=== PATIENT | female | born 1940 | race Caucasian/White ===

== ENCOUNTER 2018-08-27 06:16 | Day surgery (SDC) | payer MEDICARE ==
[2018-08-25 15:13] VITALS: BMI 21.7
[~2018-08-27 06:16] MED LIST: MOXIFLOXACIN HCL 0.5% DROPS 3 ML BTL OP ONE; TETRACAINE 0.5% OPHTH (PF) DROPS 4 ML BTL OP ONE; TIMOLOL 0.5% OPHTH DROPS 5 ML BTL OP ONE
[2018-08-27] MEDS ORDERED: LIDOCAINE 1% 20 ML VIAL (10MG/ML) FOR IV START INTRADERMA PRN (06:17)
[2018-08-27] MEDS ORDERED: LACTATED RINGERS 1,000 ML IV SCH (06:17)
[2018-08-27] MEDS: PHENYLEPHRINE 2.5% OPHTH DRP 2ML OP NR ×3 (06:44→06:56)
[2018-08-27] MEDS: CYCLOPENTOLATE 1% OPHTH SOLN 2 ML BTL OP ONE ×3 (06:47→06:59)
[2018-08-27 06:56] VITALS: RESP 16; TEMP 98.8
[2018-08-27] MEDS ORDERED: LIDOCAINE 1% (PF) 10MG/ML VIAL SQ ONE (07:43)
[2018-08-27] MEDS ORDERED: HYALURONATE SODIUM INTRAOCULAR 1 EACH SYRINGE (12MG/ML) INTRAOCULA ONE (07:43)
[2018-08-27] MEDS ORDERED: BALANCED SALT IRRIG SOLN COMB2 15 ML IRRIG.SOLN IRRIGATION ONE (07:43)
[2018-08-27] MEDS ORDERED: EPINEPHrine (PF) 0.3 ML in BALANCED SALT IRRIG SOLN COMB2 500 ML IRRIGATION ONE (07:44)
--- NOTE | 2018-08-27 07:55 | P.OP ---
Date of Procedure: 08/27/18 Preoperative Diagnosis: NS & CS Postoperative Diagnosis: same Procedure(s) Performed: PIOL, OS Implants: PCB00 22.50 Anesthesia: MAC Surgeon: Binu Bearden Estimated Blood Loss (ml): 0 Pathology: none sent Condition: stable Disposition: same day Indications for Procedure: blurry vision Operative Findings: No complications
[2018-08-27] MEDS ORDERED: fentaNYL (PF) 50 MCG/ML 2 ML AMP ONE (07:56)
[2018-08-27] MEDS ORDERED: MIDAZOLAM 2 MG/2 ML VIAL ONE (07:56)
[2018-08-27 08:12] VITALS: BP 128/76; PULSE 66
--- NOTE | 2018-08-27 12:37 | OP ---
OPERATIVE REPORT DATE OF SERVICE: August 27, 2018. SURGEON: Dr. Binu Bearden PREOPERATIVE DIAGNOSIS: Nuclear sclerosis, cortical sclerosis. POSTOPERATIVE DIAGNOSIS: Nuclear sclerosis, cortical sclerosis. OPERATION: Phacoemulsification of cataract and intraocular lens implant of the left eye. ESTIMATED BLOOD LOSS: Zero. SPECIMEN TAKEN: None. NARRATIVE: After obtaining the appropriate consent, the patient was brought to the operating room where the patient was placed under cardiac monitoring and prepped and draped in the usual sterile manner. At the 5 o'clock position a 15 degree super sharp blade was used to create a paracentesis followed by instillation of 1% Xylocaine MPF 50:50 mix with BSS into the anterior chamber. This was followed by viscoelastic Amvisc to stabilize the anterior chamber. At the 3 o'clock position a self-sealing corneal flap incision was created using 2.8 mm rhett keratome. A cystotome was used to initiate a continuous tear capsulorrhexis which was completed with the Utrata forceps. A Binkhorst cannula was used to hydrodissect the lens nucleus followed by hydrodelineation. Phacoemulsification of the lens was performed utilizing phaco chop in 17.4 seconds at 11% power. The remaining cortical material was removed using the irrigation aspiration mode followed by additional 1% Xylocaine MPF into the anterior chamber followed by viscoelastic to stabilize the capsular bag. An AUBREY PCB00 22.5 diopters posterior chamber lens was placed into the capsular bag without difficulty. The remaining viscoelastic material was removed from the anterior chamber with the irrigation/aspiration. Balanced salt solution was used to normalize the intraocular pressure. The incision was checked for watertight integrity. The patient then received two drops of 0.5% timolol followed by two drops Vigamox, was lightly patched and shielded in the usual manner. There were no complications from the procedure. The patient tolerated the procedure well and was returned to recovery in good condition. MMODL / IJN: [id number] /
== END 2018-08-27 08:36 | disposition home or self-care (01) ==
LOC: OR 06:16
PROVIDERS: ATTEND Ophthalmology
DX: H25.12 Age-related nuclear cataract, left eye (principal); H25.012 Cortical age-related cataract, left eye; H52.223 Regular astigmatism, bilateral; I10 Essential (primary) hypertension; E78.5 Hyperlipidemia, unspecified; F32.9 Major depressive disorder, single episode, unspecified; Z86.73 Personal history of transient ischemic attack (TIA), and cerebral infarction without residual deficits; Z87.891 Personal history of nicotine dependence; Z79.82 Long term (current) use of aspirin; Z79.899 Other long term (current) drug therapy
CPT/HCPCS: 66984; C1780; J2250; J0171; J3010; J2001

== ENCOUNTER 2024-04-16 14:48 | Inpatient (IN) | payer MEDICARE ==
[2024-04-16] MEDS: SODIUM CHLORIDE 0.9% 1,000 ML IV STA (15:42)
[2024-04-16] MEDS: MORPHINE SULFATE 4 MG/ML SYRINGE IVP STA (15:43)
[2024-04-16] MEDS: ONDANSETRON 4 MG/2 ML VIAL IVP STA (15:45)
[2024-04-16 15:50] LABS: Basophils % (A) 0 %; Eosinophils % (A) 0 %; HCT 52.6 % (34.0-46.0); HGB 16.9 gm/dL (11.4-16.0); Lymphocytes # (A) 1.2 k/uL (1.0-4.8); Lymphocytes % (A) 11 %; MCHC 32.2 g/dL (31.0-37.0); MCV 93.4 fL (80.0-100.0); Mean Platelet Volume 9.2; Monocytes # (A) 1.3 k/uL (0-1.0); Monocytes % (A) 11 %; Neutrophils # (A) 8.7 k/uL (1.3-7.7); Neutrophils % (A) 74 %; Platelet Count 304 k/uL (150-450); RBC 5.64 m/uL (3.80-5.40); RDW 12.7 % (11.5-15.5); WBC 11.7 k/uL (3.8-10.6)
--- NOTE | 2024-04-16 15:54 | ED ---
Abdominal Pain HPI - General Chief Complaint: Abdominal Pain Stated Complaint: abd pain Time Seen by Provider: 04/16/24 15:04 Source: patient, RN notes reviewed, old records reviewed Mode of arrival: ambulatory Limitations: no limitations - History of Present Illness Initial Comments: This is an 83-year-old female to the ER for evaluation abdominal pain suprapubic abdominal pain without nausea no vomiting no travel no sick contacts no fevers. Patient has history of but no other history of abdominal surgery. Symptoms for 4 days now with worsening Abdo. Unable to eat or drink MD Complaint: abdominal pain -: days(s) (4) Location: suprapubic Radiation: suprapubic Migration to: suprapubic Severity: severe Severity scale (1-10): 8 Quality: stabbing Consistency: constant Improves With: nothing Worsens With: nothing Associated Symptoms: nausea Treatments Prior to Arrival: other (0) - Related Data Home Medications Medication Instructions Recorded Confirmed Aspirin [Adult Low Dose Aspirin EC] 81 mg PO DAILY 08/05/18 04/16/24 Atorvastatin [Lipitor] 10 mg PO HS 08/05/18 04/16/24 Citalopram Hydrobromide 20 mg PO DAILY 08/05/18 04/16/24 [Citalopram HBr] Benazepril HCl [Lotensin] 20 mg PO DAILY 04/16/24 04/16/24 Cyclobenzaprine [Flexeril] 5 - 10 mg PO HS 04/16/24 04/16/24 Nitrofurantoin Monohyd/M-Cryst 100 mg PO Q12HR 04/16/24 04/16/24 [Macrobid] Vit C/E/Zn/Coppr/Lutein/Zeaxan 1 cap PO BID 04/16/24 04/16/24 [Preservision Areds 2 Softgel] Vitamin C(Unknown Dose) 1 tab PO DAILY 04/16/24 04/16/24 Vitamin D3(Unknown Dose) 1 tab PO DAILY 04/16/24 04/16/24 traZODone HCL [Desyrel] 50 mg PO HS 04/16/24 04/16/24 Allergies Allergy/AdvReac Type Severity Reaction Status Date / Time No Known Allergies Allergy Verified 04/16/24 18:19 Review of Systems ROS Statement: Those systems with pertinent positive or pertinent negative responses have been documented in the HPI. ROS Other: All systems not noted in ROS Statement are negative. Past Medical History Past Medical History: CVA/TIA, Hyperlipidemia, Hypertension, Osteoarthritis (OA) Additional Past Medical History / Comment(s): lt cataracts, hx of "couple" TIA's History of Any Multi-Drug Resistant Organisms: None Reported Past Surgical History: Section, Orthopedic Surgery Additional Past Surgical History / Comment(s): fx left hip sx Past Anesthesia/Blood Transfusion Reactions: No Reported Reaction Past Psychological History: Anxiety, Depression Smoking Status: Never smoker Past Alcohol Use History: Daily Past Drug Use History: None Reported - Past Family History Mother Family Medical History: Cancer Father Family Medical History: Cancer General Exam Limitations: no limitations General appearance: alert, in no apparent distress Head exam: Present: atraumatic, normocephalic, normal inspection Eye exam: Present: normal appearance, PERRL, EOMI. Absent: scleral icterus, conjunctival injection, periorbital swelling ENT exam: Present: normal exam, mucous membranes moist Neck exam: Present: normal inspection. Absent: tenderness, meningismus, lymphadenopathy Respiratory exam: Present: normal lung sounds bilaterally. Absent: respiratory distress, wheezes, rales, rhonchi, stridor Cardiovascular Exam: Present: regular rate, normal rhythm, normal heart sounds. Absent: systolic murmur, diastolic murmur, rubs, gallop, clicks GI/Abdominal exam: Present: soft, normal bowel sounds. Absent: distended, tenderness, guarding, rebound, rigid Extremities exam: Present: normal inspection, full ROM, normal capillary refill. Absent: tenderness, pedal edema, joint swelling, calf tenderness Back exam: Present: normal inspection Neurological exam: Present: alert, oriented X3, CN II-XII intact Psychiatric exam: Present: normal affect, normal mood Skin exam: Present: warm, dry, intact, normal color. Absent: rash Course Vital Signs 04/16/24 04/16/24 04/16/24 14:50 17:37 17:39 Temperature 97.3 F L 98.9 F Pulse Rate 70 102 H Respiratory 16 20 Rate Blood Pressure 111/67 143/77 O2 Sat by Pulse 95 88 L 100 Oximetry 04/16/24 04/16/24 18:00 21:39 Temperature 98.8 F Pulse Rate 94 Respiratory 17 Rate Blood Pressure 130/75 O2 Sat by Pulse 100 95 Oximetry - Reevaluation(s) Reevaluation #1: 04/16/24 16:42 Records reviewed Reevaluation #2: 04/16/24 16:42 Patient symptoms unchanged Reevaluation #3: 04/16/24 16:42 Patient informed of results and questions answered Reevaluation #4: Was pt. sent in by a medical professional or institution (, PA, BUTTON MACHINE OPERATOR, urgent care, hospital, or fci...) When possible be specific @ -no Did you speak to anyone other than the patient for history (EMS, parent, family, police, friend...)? What history was obtained from this source @ -no Did you review nursing and triage notes (agree or disagree)? Why? @ -agree Are old charts reviewed (outside hosp., previous admission, EMS record, old EKG, old radiological studies, urgent care reports/EKG's, fci records)? Report findings @ -yes Differential Diagnosis (chest pain, altered mental status, abdominal pain women, abdominal pain men, vaginal bleeding, weakness, fever, dyspnea, syncope, headache, dizziness, GI bleed, back pain, seizure, CVA, palpatations, mental health, musculoskeletal)? @ -prior EKG interpreted by me (3pts min.). @ -yes X-rays interpreted by me (1pt min.). @ -no CT interpreted by me (1pt min.). @ -Yes positive for small bowel obstruction U/S interpreted by me (1pt. min.). @ -no What testing was considered but not performed or refused? (CT, X-rays, U/S, labs)? Why? @ -none What meds were considered but not given or refused? Why? @ -none Did you discuss the management of the patient with other professionals (professionals i.e. , PA, BUTTON MACHINE OPERATOR, lab, RT, psych nurse, social media director, cash accountant, teacher, program officer, renal case manager)? Give summary @ -no Was smoking cessation discussed for >3mins.? @ -no Was critical care preformed (if so, how long)? @ -no Were there social determinants of health that impacted care today? How? (Homelessness, low income, unemployed, alcoholism, drug addiction, tra nsportation, low edu. Level, literacy, decrease access to med. care, penitentiary, rehab)? @ -none Was there de-escalation of care discussed even if they declined (Discuss DNR or withdrawal of care, Hospice)? DNR status @ -no What co-morbidities impacted this encounter? (DM, HTN, Smoking, COPD, CAD, Cance r, CVA, ARF, Chemo, Hep., AIDS, mental health diagnosis, sleep apnea, morbid obesity)? @ -none Was patient admitted / discharged? Hospital course, mention meds given and route, prescriptions, significant lab abnormalities, going to OR and other pertinent info. @ - 83 female with positive mobile structure admit for surgical evaluation management n.p.o. and pain control Admitted Undiagnosed new problem with uncertain prognosis? @ -no Drug Therapy requiring intensive monitoring for toxicity (Heparin, Nitro, Insulin, Cardizem)? @ -no Were any procedures done? @ -no Diagnosis/symptom? @ -Small bowel obstruction Acute, or Chronic, or Acute on Chronic? @ -Acute Uncomplicated (without systemic symptoms) or Complicated (systemic symptoms)? @ -Complicated Side effects of treatment? @ -no Exacerbation, Progression, or Severe Exacerbation? @ -exacerbation Poses a threat to life or bodily function? How? (Chest pain, USA, DC, pneumonia, PE, COPD, DKA, ARF, appy, cholecystitis, CVA, Diverticulitis, Homicidal, Suicidal, threat to staff... and all critical care pts) @ -yes extremes of age Reevaluation #5: Differential Abdominal Pain Women: Appendicitis, Cholecystitis, diverticulosis, ischemic bowel, pancreatitis, hepatitis, UTI, gastroenteritis, AAA, incarcerated hernia, bowel obstruction, constipation, inflammatory bowel, hepatitis, peptic ulcer disease, splenic infarction, perforated viscus, vulvitis, ovarian torsion, PID, kidney stone, placenta abruption, this is not meant to be an all-inclusive list - Consultations Consultation #1: Spoke with admitting physicians who agreed to admit this patient Medical Decision Making - Medical Decision Making 83 female with positive mobile structure admit for surgical evaluation management n.p.o. and pain control - Lab Data Result diagrams: 04/19/24 02:40 04/19/24 02:40 Lab Results 04/16/24 04/16/24 04/16/24 Range/Units 15:28 15:28 17:50 WBC 11.7 H (3.8-10.6) k/uL RBC 5.64 H (3.80-5.40) m/uL Hgb 16.9 H (11.4-16.0) gm/dL Hct 52.6 H (34.0-46.0) % MCV 93.4 (80.0-100.0) fL MCH 30.0 (25.0-35.0) pg MCHC 32.2 (31.0-37.0) g/dL RDW 12.7 (11.5-15.5) % Plt Count 304 (150-450) k/uL MPV 9.2 Neutrophils % 74 % Lymphocytes % 11 % Monocytes % 11 % Eosinophils % 0 % Basophils % 0 % Neutrophils # 8.7 H (1.3-7.7) k/uL Lymphocytes # 1.2 (1.0-4.8) k/uL Monocytes # 1.3 H (0-1.0) k/uL Eosinophils # 0.0 (0-0.7) k/uL Basophils # 0.0 (0-0.2) k/uL Sodium 131 L (137-145) mmol/L Potassium 4.4 (3.5-5.1) mmol/L Chloride 93 L (98-107) mmol/L Carbon Dioxide 29 (22-30) mmol/L Anion Gap 9 mmol/L BUN 24 H (7-17) mg/dL Creatinine 0.90 (0.52-1.04) mg/dL Est GFR (CKD-EPI)AfAm 69 (>60 ml/min/1.73 sqM) Est GFR (CKD-EPI)NonAf 60 (>60 ml/min/1.73 sqM) Glucose 132 H (74-99) mg/dL Calcium 11.0 H (8.4-10.2) mg/dL Phosphorus 6.2 H (2.5-4.5) mg/dL Magnesium 1.9 (1.6-2.3) mg/dL Total Bilirubin 1.4 H (0.2-1.3) mg/dL AST 28 (14-36) U/L ALT 16 (4-34) U/L Alkaline Phosphatase 62 (38-126) U/L Total Protein 6.9 (6.3-8.2) g/dL Albumin 4.3 (3.5-5.0) g/dL Amylase 54 (30-110) U/L Lipase 182 (23-300) U/L Urine Color Light Yellow Urine Appearance Clear (Clear) Urine pH 5.0 (5.0-8.0) Ur Specific [place] 1.026 (1.001-1.035) Urine Protein Negative (Negative) Urine Glucose (UA) Negative (Negative) Urine Ketones Negative (Negative) Urine Blood Negative (Negative) Urine Nitrite Negative (Negative) Urine Bilirubin Negative (Negative) Urine Urobilinogen <2.0 (<2.0) mg/dL Ur Leukocyte Esterase Negative (Negative) - Radiology Data Radiology results: report reviewed (CT abdomen pelvis positive for small bowel obstruction), image reviewed Disposition Clinical Impression: Abdominal pain, Small bowel obstruction Disposition: ADMITTED IP TO THIS [facility] Condition: Fair Is patient prescribed a controlled substance at d/c from ED?: No Time of Disposition: 18:30
[2024-04-16 16:06] LABS: ALT 16 U/L (4-34); African American GFR (CKD) 69 (>60 ml/min/1.73 sqM); Albumin 4.3 g/dL (3.5-5.0); Amylase 54 U/L (30-110); Anion Gap 9 mmol/L; Blood Urea Nitrogen 24 mg/dL (7-17); Carbon Dioxide 29 mmol/L (22-30); Chloride 93 mmol/L (98-107); Glucose 132 mg/dL (74-99); Lipase 182 U/L (23-300); Non-African American GFR(CKD) 60 (>60 ml/min/1.73 sqM); Sodium 131 mmol/L (137-145); Total Bilirubin 1.4 mg/dL (0.2-1.3); Total Protein 6.9 g/dL (6.3-8.2)
[2024-04-16 16:20] LABS: AST 28 U/L (14-36); Alkaline Phosphatase 62 U/L (38-126); Magnesium 1.9 mg/dL (1.6-2.3); Phosphorus 6.2 mg/dL (2.5-4.5); Potassium 4.4 mmol/L (3.5-5.1)
--- NOTE | 2024-04-16 17:26 | CT ---
EXAMINATION TYPE: CT abdomen pelvis w con DATE OF EXAM: 04/16/2024 COMPARISON: None HISTORY: lower abdominal pain CT DLP: 624.9 mGycm CONTRAST: CT scan of the abdomen and pelvis is performed without Oral Contrast and with IV Contrast, patient in jected with 80ml mL of Isovue 370. FINDINGS: LUNG BASES-: No visible nodule. No infiltrate. LIVER/GB: No calcified gallstones. Hepatic cyst posterior segment right hepatic lobe measures 1 cm. Biliary tree is of normal caliber. PANCREAS: No inflammation. No distinct mass. SPLEEN: No splenic enlargement. No lesion seen. ADRENALS: No nodule. No thickening. KIDNEYS/BLADDER: No hydronephrosis. No nephrolithiasis. No distinct renal mass. Urinary bladder g rossly unremarkable. BOWEL: Normal appendix. Small bowel obstruction with dilatation of small bowel and stomach secondary to an incarcerated hernia low anterior abdominal wall seen best on axial images 74 through 77 and cor onal image #27. Incarcerated segment of small bowel just to the left of midline. GENITAL ORGANS: Calcified uterine leiomyomas. LYMPH NODES: No greater than 1cm abdominal or pelvic lymph nodes are appreciated. AORTA: No significant abnormality. OSSEOUS STRUCTURES: No significant abnormality is seen. OTHER: No significant additional abnormality is seen. IMPRESSION: 1. Small bowel obstruction with dilatation of small bowel and stomach secondary to an incarcerated he rnia low anterior abdominal wall seen best on axial images 74 through 77 and coronal image #27. Incar cerated segment of small bowel just to the left of midline. Strangulation not excluded. [facility], , 04/16/2024 5:24 PM
[2024-04-16 18:01] LABS: Appearance,Urine Clear (Clear); Bilirubin,Urine Negative (Negative); Blood,Urine Negative (Negative); Color,Urine Light Yellow; Glucose,Urine (UA) Negative (Negative); Ketones,Urine Negative (Negative); Leukocyte Esterase,Urine Negative (Negative); Nitrite,Urine Negative (Negative); Protein,Urine Negative (Negative); Specific Gravity,Urine 1.026 (1.001-1.035); Urobilinogen,Urine <2.0 mg/dL (<2.0)
[2024-04-16] MEDS ORDERED: NALOXONE 0.4 MG/ML 1 ML VIAL IV PRN (18:26)
[2024-04-16] MEDS: SODIUM CHLORIDE 0.9% 1,000 ML IV SCH (19:55)
[2024-04-16] MEDS: AMPICILLIN-SULBACTAM 3 GM in SODIUM CHLORIDE 0.9% 100 ML IVPB STA (19:55)
--- NOTE | 2024-04-16 20:27 | XR ---
EXAMINATION TYPE: XR chest 1V confirm line [facility] DATE OF EXAM: 04/16/2024 HISTORY: Shortness of breath. COMPARISON: None. TECHNIQUE: Single view of the chest is submitted. FINDINGS: Demonstrated are scattered senescent parenchymal change. There is right paratracheal mass with deviation of the trachea from right to left. NG tube is seen co ursing into the stomach. Atelectatic change left lung base. The heart is stable. Hilar and mediastinal structures are within normal limits. Degenerative changes are seen of the dorsal spine. IMPRESSION: 1. There is right paratracheal mass with deviation of the trachea from right to left. NG tube is see n coursing into the stomach. Atelectatic change left lung base. [facility], , 04/16/2024 8:25 PM
[2024-04-17] MEDS: MORPHINE SULFATE 4 MG/ML SYRINGE IV PRN (01:24)
--- NOTE | 2024-04-17 02:12 | XR ---
EXAM: XR Chest, 1 View CLINICAL HISTORY: ITS.REASON XR Reason: NG tube line placement TECHNIQUE: Frontal view of the chest. COMPARISON: 04/16/2024. FINDINGS: Lungs: Unremarkable. No consolidation. Pleural space: Small bilateral pleural effusions. No pneumothorax. Heart: Unremarkable. No cardiomegaly. Mediastinum: Unremarkable. Normal mediastinal contour. Bones/joints: Unremarkable. No acute fracture. Tubes, lines and devices: Esophageal catheter with its tip in the stomach. IMPRESSION: Small bilateral pleural effusions. Appropriate positioning of support devices
[2024-04-17] MEDS: AMPICILLIN-SULBACTAM 3 GM in SODIUM CHLORIDE 0.9% 100 ML IVPB SCH (04:01)
[2024-04-17 08:43] LABS: ALT 13 U/L (8-44); AST 16 U/L (13-35); Albumin 3.6 g/dL (3.8-4.9); Alkaline Phosphatase 68 U/L (41-126); Blood Urea Nitrogen 18.9 mg/dL (9.0-27.0); Carbon Dioxide 27.2 mmol/L (21.6-31.8); Chloride 99 mmol/L (96-109); Globulin 1.8 g/dL (1.6-3.3); Glucose 122 mg/dL (70-110); Magnesium 1.9 mg/dL (1.5-2.4); Phosphorus 3.6 mg/dL (2.4-5.1); Potassium 3.9 mmol/L (3.5-5.5); Sodium 138 mmol/L (135-145); Total Bilirubin 0.7 mg/dL (0.3-1.2); Total Protein 5.4 g/dL (6.2-8.2)
[2024-04-17 09:20] LABS: HCT 46.4 % (37.2-46.3); HGB 14.9 g/dL (12.0-15.0); MCH 29.8 pg (27.0-32.0); MCHC 32.1 g/dL (32.0-37.0); MCV 92.8 FL (80.0-97.0); Mean Platelet Volume 12.2 FL (9.5-12.2); NRBC Per 100 WBC 0 X 10*3/uL (0.00-0.01); Platelet Count 248 X 10*3/uL (140-440); RDW 13.6 % (11.5-14.5); WBC 9.02 X 10*3/uL (4.50-10.00)
[2024-04-17 10:02] LABS: Basophils # (A) 0.04 X 10*3/uL (0.00-0.10); Basophils % (A) 0.4 %; Eosinophils # (A) 0.03 X 10*3/uL (0.04-0.35); Eosinophils % (A) 0.3 %; Lymphocytes # (A) 0.71 X 10*3/uL (0.90-5.00); Lymphocytes % (A) 7.9 %; Monocytes # (A) 2.02 X 10*3/uL (0.20-1.00); Monocytes % (A) 22.4 %; Neutrophils % (A) 68.8 %; RBC Morphology Normal (Normal)
[2024-04-17] MEDS ORDERED: LORazepam 2 MG/ML INJ IV PRN ×4 (10:57)
--- NOTE | 2024-04-17 10:59 | P.HPIM ---
History of Present Illness H&P Date: 04/17/24 Chief Complaint: Abdominal pain This is a pleasant 83-year-old female with past medical history significant for 1 abdominal surgery-hysterectomy, CVA/TIA, hypertension, hyperlipidemia, osteoarthritis, cataracts, anxiety, depression, prior nicotine dependence-smoked 1 pack/day from teen years x 35 years, quit 1983, 3 beers per night and multiple other medical issues presented to the ER with complaints of abdominal pain. Reports abdominal pain started on Saturday, unable to attribute it to anything. Denies nausea, vomiting denies bowel movement or flatus since earlier this week. Denies recent illness. Denies fever or chills. Denies prior bowel o bstructions. patient reports normal colonoscopy [address] Mervat Nunez. Abdominal pain continued to progress and patient presented to the ER. CT of abdomen and pelvis reported small bowel obstruction with dilatation of the small bowel and stomach secondary to incarcerated hernia low anterior abdominal wall .incarcerated segment of small bowel just to the left of the midline, strangulation not excluded . Reported difficulty swallowing, chest x-ray reporting right peritracheal mass with deviation of the trachea for right to left, NG tube coursing into the stomach, atelectatic changes left lung base afebrile. Repeat chest x-ray reporting small bilateral pleural effusions. Afebrile, WBC 11.7 on admission, now within normal limits. Hemoglobin decreased from 16.9-14.9, platelets decreased to 248, electrolytes and renal function within normal limits. Glucose 122. T. bili initially 1.4 currently 0.7. UA negative. Follow-up bowel sounds are extremely hypoactive. NG tube placed last night, accidentally dislodged and replaced during the night with 600 mL of bilious drainage. Review of Systems ROS Statement: Those systems with pertinent positive or pertinent negative responses have been documented in the HPI. ROS Other: All systems not noted in ROS Statement are negative. Past Medical History Past Medical History: CVA/TIA, Hyperlipidemia, Hypertension, Osteoarthritis (OA) Additional Past Medical History / Comment(s): lt cataracts, hx of "couple" TIA's History of Any Multi-Drug Resistant Organisms: None Reported Past Surgical History: Section, Orthopedic Surgery Additional Past Surgical History / Comment(s): fx left hip sx Past Anesthesia/Blood Transfusion Reactions: No Reported Reaction Past Psychological History: Anxiety, Depression Smoking Status: Never smoker Past Alcohol Use History: Daily Additional Past Alcohol Use History / Comment(s): quit smoking approx 35 yrs ago (1983) smoked 1ppd from teens, Drinks 3 beers a night ( 2% Budweiser) Past Drug Use History: None Reported - Past Family History Mother Family Medical History: Cancer Father Family Medical History: Cancer Medications and Allergies Home Medications Medication Instructions Recorded Confirmed Type Aspirin [Adult Low Dose Aspirin EC] 81 mg PO DAILY 08/05/18 04/16/24 History Atorvastatin [Lipitor] 10 mg PO HS 08/05/18 04/16/24 History Citalopram Hydrobromide 20 mg PO DAILY 08/05/18 04/16/24 History [Citalopram HBr] Benazepril HCl [Lotensin] 20 mg PO DAILY 04/16/24 04/16/24 History Cyclobenzaprine [Flexeril] 5 - 10 mg PO HS 04/16/24 04/16/24 History Nitrofurantoin Monohyd/M-Cryst 100 mg PO Q12HR 04/16/24 04/16/24 History [Macrobid] Vit C/E/Zn/Coppr/Lutein/Zeaxan 1 cap PO BID 04/16/24 04/16/24 History [Preservision Areds 2 Softgel] Vitamin C(Unknown Dose) 1 tab PO DAILY 04/16/24 04/16/24 History Vitamin D3(Unknown Dose) 1 tab PO DAILY 04/16/24 04/16/24 History traZODone HCL [Desyrel] 50 mg PO HS 04/16/24 04/16/24 History Allergies Allergy/AdvReac Type Severity Reaction Status Date / Time No Known Allergies Allergy Verified 04/16/24 18:19 Physical Exam Vitals: Vital Signs Temp Pulse Pulse Resp BP BP Pulse Ox 04/17/24 07:26 98.8 F 99 17 119/72 92 L 04/17/24 02:43 97.9 F 89 15 159/77 90 L 04/16/24 21:54 98.2 F 91 16 136/66 97 04/16/24 21:39 98.8 F 94 17 130/75 95 04/16/24 18:00 100 04/16/24 17:39 100 04/16/24 17:37 98.9 F 102 H 20 143/77 88 L 04/16/24 14:50 97.3 F L 70 16 111/67 95 Intake and Output 04/16/24 04/17/24 04/17/24 22:59 06:59 14:59 Output Total 600 600 Balance -600 -600 Output: Gastric Drainage 600 600 Other: Voiding Method Toilet # Voids 2 Weight 49.895 kg PHYSICAL EXAM: VITAL SIGNS: [Reviewed] GENERAL: Pleasant, alert and oriented x 3,NAD, HEENT: Normocephalic, atraumatic conjunctivae normal. eyes normal. NG tube with bilious drainage NECK: Supple, no JVD. CARDIOVASCULAR: S1, S2 regular.. No murmur RESPIRATION: Unlabored, essentially clear to auscultation with bilateral bases diminished. ABDOMEN: Soft, distended, diffuse tenderness, no guarding, extremely hypoactive bowel sounds, no gurgling LEGS: No edema. no swelling NERVOUS SYSTEM: Cranial N 2-12 grossly normal.No focal deficits. Strength and sensation grossly intact. Skin: Warm and dry, no rash noted. Results CBC & Chem 7: 04/17/24 05:46 04/17/24 05:46 Labs: Abnormal Lab Results - Last 24 Hours (Table) 04/16/24 04/16/24 Range/Units 15:28 15:28 WBC 11.7 H (3.8-10.6) k/uL RBC 5.64 H (3.80-5.40) m/uL Hgb 16.9 H (11.4-16.0) gm/dL Hct 52.6 H (34.0-46.0) % Neutrophils # 8.7 H (1.3-7.7) k/uL Monocytes # 1.3 H (0-1.0) k/uL Sodium 131 L (137-145) mmol/L Chloride 93 L (98-107) mmol/L BUN 24 H (7-17) mg/dL Glucose 132 H (74-99) mg/dL Calcium 11.0 H (8.4-10.2) mg/dL Phosphorus 6.2 H (2.5-4.5) mg/dL Total Bilirubin 1.4 H (0.2-1.3) mg/dL Thrombosis Risk Factor Assmnt - Choose All That Apply Any of the Below Risk Factors Present?: No Other Risk Factors: No Other congenital or acquired thrombophilia - If yes, enter type in comment: No Thrombosis Risk Factor Assessment Level: Very Low Risk Assessment and Plan Assessment: Abdominal pain, small bowel obstruction, incarcerated hernia, strangulation not excluded reported per CT Difficulty swallowing, right paratracheal mass with deviation of the trachea from right to left reported per chest x-ray Bibasilar atelectasis History of hysterectomy Prior nicotine dependence, smoked 1 pack/day from teen years x 35 years, quit 1984 Daily alcohol use, 3 beers of Budweiser 2%, nightly reported History of CVA, TIA Hypertension Hyperlipidemia OA Anxiety Depression Plan: Continue on current medication resume ,monitoring and symptomatic treatment. Maintain NG tube, general surgery consult in place, recommendations pending. Pulmonary consulted. IV fluid hydration. Pain management. Continues on Unasyn. PPI for GI prophylaxis. CIWA protocol.prognosis guarded given multiple complex medical issues. The impression and plan of care has been dictated as directed. : I performed a history and examination of this patient, discussed the same with the dictator. I agree with the dictator's note ,documented as a scribe. Any additional findings or plans will be noted.
--- NOTE | 2024-04-17 11:13 | P.GSCN ---
History of Present Illness Consult date: 04/17/24 History of present illness: CHIEF COMPLAINT: Abdominal pain HISTORY OF PRESENT ILLNESS: This is a 83-year-old female who presented to the hospital with complaints of diffuse abdominal pain. Patient reports pain started 4 days ago. She denies any nausea or vomiting. She has not had a bowel movement or flatus for the past 4 days. Patient denies any prior history of bowel obstruction. Surgical history does include a . Patient had CT scan abdomen and pelvis completed that reported small bowel obstruction with dilatation of small bowel and stomach secondary to incarcerated hernia lower anterior abdominal wall. Incarcerated segment of small bowel just to the left of the midline. Strangulation not excluded. Patient did have NG tube placed with 600 output yesterday and 600 out this morning. Patient reports slight improvement in abdominal distention. But still complains of the pain. PAST MEDICAL HISTORY: TIA, hyperlipidemia, hypertension, osteoarthritis PAST SURGICAL HISTORY: MEDICATIONS: See below ALLERGIES: See below SOCIAL HISTORY: No illicit drug use. History of smoking cigarettes quit several years ago. Patient drinks 3 beers daily. REVIEW OF SYSTEMS: CONSTITUTIONAL: Denies fever or chills. HEENT: Denies blurred vision, vision changes, or eye pain. Denies hemoptysis CARDIOVASCULAR: Denies chest pain or pressure. RESPIRATORY: No shortness of breath. GASTROINTESTINAL: See HPI for pertinent findings HEMATOLOGIC: Denies bleeding disorders. GENITOURINARY: Denies any blood in urine or increased urinary frequency. SKIN: Denies pruitis. Denies rash. PHYSICAL EXAM: VITAL SIGNS: Reviewed GENERAL: Well-developed in no acute distress. HEENT: No sclera icterus. Extraocular movements grossly intact. Moist buccal mucosa. Head is atraumatic, normocephalic. No nasal drainage. ABDOMEN: Soft. Distended. Diffuse tenderness and more tender in lower abdomen. No guarding noted NEUROLOGIC: Alert and oriented. Cranial nerves II through XII grossly intact. LABORATORY DATA: WBC 11.7 down to 9.02 hemoglobin 14.9 platelets 248 Sodium 138 potassium 3.9 creatinine 0.6 IMAGING: CT scan abdomen pelvis reports small bowel obstruction with dilatation of small bowel and stomach secondary to an incarcerated hernia lower anterior abdominal wall. Incarcerated segment of small bowel just to the left of the midline. Strangulation not excluded. Chest x-ray reporting a right paratracheal mass with deviation of the trachea from the left. ASSESSMENT: 1. Small bowel obstruction secondary to incarcerated hernia in the lower anterior abdominal wall. CAT scan reports incarcerated segment of small bowel just to the left the midline and strangulation not excluded 2. History of 3. Paratracheal mass with deviation of trachea noted on chest x-ray 4. Daily EtOH use PLAN: -Patient scheduled for repair of incarcerated ventral hernia, possible bowel resection today with Dr. Kumar -Patient seen and evaluated by pulmonary service regarding the peritracheal mass and they have cleared patient to proceed with surgery -Continue NG tube for decompression -Keep patient n.p.o. -Continue IV fluids -Continue antibiotics -Continue pain management Physician [employer] [place] [employer] note has been reviewed by physician. Signing provider agrees with the documented findings, assessment, and plan of care. I have personally seen and examined the patient, reviewed the [facility] HOP /PAs history, exam and MDM and agree with the assessment and plan as written. Based on total visit time, I have performed more than 50% of the visit. As above: Patient with small bowel obstruction from previous lower midline incision. Patient with leukocytosis and fevers. Early sepsis from small bowel obstruction present. Will proceed with urgent repair incarcerated incisional hernia with possible mesh, possible bowel resection. Risks of bleeding, infection, scarring, leak, recurrence, respiratory and pulmonary complications reviewed with patient and family. They understand and wish to proceed. Patient will be placed full code for now and we will discuss changing back to no CODE STATUS tomorrow. Past Medical History Past Medical History: CVA/TIA, Hyperlipidemia, Hypertension, Osteoarthritis (OA) Additional Past Medical History / Comment(s): lt cataracts, hx of "couple" TIA's History of Any Multi-Drug Resistant Organisms: None Reported Past Surgical History: Section, Orthopedic Surgery Additional Past Surgical History / Comment(s): fx left hip sx Past Anesthesia/Blood Transfusion Reactions: No Reported Reaction Past Psychological History: Anxiety, Depression Smoking Status: Never smoker Past Alcohol Use History: Daily Additional Past Alcohol Use History / Comment(s): quit smoking approx 35 yrs ago (1983) smoked 1ppd from teens, Drinks 3 beers a night ( 2% Budweiser) Past Drug Use History: None Reported - Past Family History Mother Family Medical History: Cancer Father Family Medical History: Cancer Medications and Allergies Home Medications Medication Instructions Recorded Confirmed Type Aspirin [Adult Low Dose Aspirin EC] 81 mg PO DAILY 08/05/18 04/16/24 History Atorvastatin [Lipitor] 10 mg PO HS 08/05/18 04/16/24 History Citalopram Hydrobromide 20 mg PO DAILY 08/05/18 04/16/24 History [Citalopram HBr] Benazepril HCl [Lotensin] 20 mg PO DAILY 04/16/24 04/16/24 History Cyclobenzaprine [Flexeril] 5 - 10 mg PO HS 04/16/24 04/16/24 History Nitrofurantoin Monohyd/M-Cryst 100 mg PO Q12HR 04/16/24 04/16/24 History [Macrobid] Vit C/E/Zn/Coppr/Lutein/Zeaxan 1 cap PO BID 04/16/24 04/16/24 History [Preservision Areds 2 Softgel] Vitamin C(Unknown Dose) 1 tab PO DAILY 04/16/24 04/16/24 History Vitamin D3(Unknown Dose) 1 tab PO DAILY 04/16/24 04/16/24 History traZODone HCL [Desyrel] 50 mg PO HS 04/16/24 04/16/24 History Allergies Allergy/AdvReac Type Severity Reaction Status Date / Time No Known Allergies Allergy Verified 04/16/24 18:19 Surgical - Exam Vital Signs Temp Pulse Resp BP Pulse Ox 97.3 F L 70 16 111/67 95 04/16/24 14:50 04/16/24 14:50 04/16/24 14:50 04/16/24 14:50 04/16/24 14:50 Results - Labs 04/17/24 05:46 04/17/24 05:46 Abnormal Lab Results - Last 24 Hours (Table) 04/16/24 04/16/24 04/17/24 Range/Units 15:28 15:28 05:46 WBC 11.7 H (3.8-10.6) k/uL RBC 5.64 H (3.80-5.40) m/uL Hgb 16.9 H (11.4-16.0) gm/dL Hct 52.6 H 46.4 H (34.0-46.0) % Neutrophils # 8.7 H (1.3-7.7) k/uL Monocytes # 1.3 H (0-1.0) k/uL Sodium 131 L (137-145) mmol/L Chloride 93 L (98-107) mmol/L BUN 24 H (7-17) mg/dL BUN/Creatinine Ratio (12.00-20.00) Ratio Glucose 132 H (74-99) mg/dL Calcium 11.0 H (8.4-10.2) mg/dL Phosphorus 6.2 H (2.5-4.5) mg/dL Total Bilirubin 1.4 H (0.2-1.3) mg/dL Total Protein (6.2-8.2) g/dL Albumin (3.8-4.9) g/dL 04/17/24 Range/Units 05:46 WBC (3.8-10.6) k/uL RBC (3.80-5.40) m/uL Hgb (11.4-16.0) gm/dL Hct (34.0-46.0) % Neutrophils # (1.3-7.7) k/uL Monocytes # (0-1.0) k/uL Sodium (137-145) mmol/L Chloride (98-107) mmol/L BUN (7-17) mg/dL BUN/Creatinine Ratio 31.50 H (12.00-20.00) Ratio Glucose 122 H (74-99) mg/dL Calcium (8.4-10.2) mg/dL Phosphorus (2.5-4.5) mg/dL Total Bilirubin (0.2-1.3) mg/dL Total Protein 5.4 L (6.2-8.2) g/dL Albumin 3.6 L (3.8-4.9) g/dL Diabetes panel 04/16/24 04/17/24 Range/Units 15:28 05:46 Sodium 131 L 138 (137-145) mmol/L Potassium 4.4 3.9 (3.5-5.1) mmol/L Chloride 93 L 99 (98-107) mmol/L Carbon Dioxide 29 27.2 (22-30) mmol/L BUN 24 H 18.9 (7-17) mg/dL Creatinine 0.90 0.6 (0.52-1.04) mg/dL Glucose 132 H 122 H (74-99) mg/dL Calcium 11.0 H 9.0 (8.4-10.2) mg/dL AST 28 16 (14-36) U/L ALT 16 13 (4-34) U/L Alkaline Phosphatase 62 68 (38-126) U/L Total Protein 6.9 5.4 L (6.3-8.2) g/dL Albumin 4.3 3.6 L (3.5-5.0) g/dL Calcium panel 04/16/24 04/17/24 Range/Units 15:28 05:46 Calcium 11.0 H 9.0 (8.4-10.2) mg/dL Phosphorus 6.2 H 3.6 (2.5-4.5) mg/dL Albumin 4.3 3.6 L (3.5-5.0) g/dL Pituitary panel 04/16/24 04/17/24 Range/Units 15:28 05:46 Sodium 131 L 138 (137-145) mmol/L Potassium 4.4 3.9 (3.5-5.1) mmol/L Chloride 93 L 99 (98-107) mmol/L Carbon Dioxide 29 27.2 (22-30) mmol/L BUN 24 H 18.9 (7-17) mg/dL Creatinine 0.90 0.6 (0.52-1.04) mg/dL Glucose 132 H 122 H (74-99) mg/dL Calcium 11.0 H 9.0 (8.4-10.2) mg/dL Adrenal panel 04/16/24 04/17/24 Range/Units 15:28 05:46 Sodium 131 L 138 (137-145) mmol/L Potassium 4.4 3.9 (3.5-5.1) mmol/L Chloride 93 L 99 (98-107) mmol/L Carbon Dioxide 29 27.2 (22-30) mmol/L BUN 24 H 18.9 (7-17) mg/dL Creatinine 0.90 0.6 (0.52-1.04) mg/dL Glucose 132 H 122 H (74-99) mg/dL Calcium 11.0 H 9.0 (8.4-10.2) mg/dL Total Bilirubin 1.4 H 0.7 (0.2-1.3) mg/dL AST 28 16 (14-36) U/L ALT 16 13 (4-34) U/L Alkaline Phosphatase 62 68 (38-126) U/L Total Protein 6.9 5.4 L (6.3-8.2) g/dL Albumin 4.3 3.6 L (3.5-5.0) g/dL
[2024-04-17] MEDS: PANTOPRAZOLE 40 MG/10 ML VIAL IVP SCH (11:20)
[2024-04-17] MEDS: IV FLUID CONTINUATION 950 ML IV ONE (12:11)
[2024-04-17] MEDS: DEXAMETHASONE SOD PHOSPHATE 4 MG/ML 1 ML VIAL IVP STA (12:46)
[2024-04-17] MEDS: ONDANSETRON 4 MG/2 ML VIAL IVP PRN (12:47)
[2024-04-17] MEDS: MIDAZOLAM 2 MG/2 ML VIAL IV ONE (13:01)
--- NOTE | 2024-04-17 13:23 | P.ANPRN ---
Procedure Note - Anesthesia - Nerve Block Performed Bilateral Transversus Abdominis Single Time Out Performed: Yes Date of Procedure: 04/17/24 Procedure Start Time: 13:00 Procedure Stop Time: 13:15 Location of Patient: PreOp Indication: Acute Post-Operative Pain, Requested by Surgeon Sedation Type: Sedate with meaningful contact maintained Preparation: Sterile Prep, Sterile Dressing Position: Supine Catheter: None Needle Types: Facet Needle Gauge: 20 Ultrasound used to visualize needle placement: Yes Ultrasound used to observe medication spread: Yes Injectate: Other (see comment) (Ropivacaine 0.25% 30 ml + decadron 2 mg per side) Blood Aspirated: No Pain Paresthesia on Injection Noted: No Resistance on Injection: Normal Image Stored and Saved: Yes Events: Uneventful and Well Tolerated
[2024-04-17] MEDS: HEPARIN SODIUM,PORCINE 5,000 UNIT/ML 1 ML VIAL SQ STA (13:32)
[2024-04-17] MEDS ORDERED: NEOSTIGMINE 1 MG/ML 10 ML VIAL ONE (13:38)
[2024-04-17] MEDS ORDERED: SUGAMMADEX SODIUM 200 MG/2 ML SDV IV ONE (13:38)
[2024-04-17] MEDS ORDERED: fentaNYL (PF) 50 MCG/ML 2 ML AMP ONE (13:38)
[2024-04-17] MEDS ORDERED: SUCCINYLCHOLINE CHLORIDE 200 MG/10 ML VIAL IV ONE (13:38)
[2024-04-17] MEDS ORDERED: ROPIVACAINE 5 MG/ML 30 ML VIAL ONE (13:38)
[2024-04-17] MEDS ORDERED: PHENYLEPHRINE-0.9% NACL SYG 1,000 MCG/10 ML SYRINGE ONE (13:38)
[2024-04-17] MEDS ORDERED: LIDOCAINE 1% INJ 10MG/ML (20 ML MDV) ONE (13:38)
[2024-04-17] MEDS ORDERED: ROCURONIUM 10 MG/ML (5 ML VIAL) IV ONE (13:38)
[2024-04-17] MEDS ORDERED: PROPOFOL 10 MG/ML 20 ML VIAL IV ONE (13:38)
[2024-04-17] MEDS ORDERED: DEXAMETHASONE SOD PHOSPHATE 4 MG/ML 1 ML VIAL ONE (13:38)
[2024-04-17] MEDS ORDERED: GLYCOPYRROLATE 0.2 MG/ML 2 ML VIAL ONE (13:38)
[2024-04-17] MEDS: SODIUM CHLORIDE 0.9% 50 ML with ceFAZolin 1,000 MG IV ONE (13:46)
--- NOTE | 2024-04-17 14:48 | P.CNPUL ---
History of Present Illness Consult date: 04/17/24 Requesting physician: Cecil Martinez Reason for consult: abnormal CXR/CT Chief complaint: Abdominal pain History of present illness: This is a pleasant 83-year-old female patient with a known history of CVA/TIA, hyperlipidemia, hypertension, anxiety/depression, daily alcohol use, non-smoker who presented to the emergency room yesterday with a 4-day history of increasing abdominal pain. Unable to eat or drink. No bowel movement x [address] scan of the abdomen and pelvis revealed a small bowel obstruction with dilatation of small bowel and stomach secondary to an incarcerated hernia low anterior abdominal wall. Incarcerated segment of small bowel just to the left of midline. Strangulation not excluded. White count 9.0. Hemoglobin 14.9. Platelets 248. Sodium 138. Potassium 3.9. Bicarb 27. BUN 19. Creatinine 0.6. Glucose 122. Urinalysis negative. Amylase 54. Lipase 182. Chest x-ray revealed a right paratracheal mass with deviation of the trachea from right to left. Nasogastric tube in place. Atelectasis of the left lung base. Consulted for abnormal chest x-ray findings. She is seen on the regular medical floor. She is currently resting fairly comfortably in bed. Awake and alert in no acute distress. Nasogastric tube remains in place. She is maintaining good O2 saturations in the 90s on room air. She denies any shortness of breath, cough or congestion. No hemoptysis. She has been initiated on Unasyn. Normal saline at 75 mL/h. Currently on the CIWA protocol. Review of Systems REVIEW OF SYSTEMS: CONSTITUTIONAL: Denies any recent significant weight loss or weight gain. EYES: Denies change in vision. EARS, NOSE, MOUTH, THROAT: Denies headaches, denies sore throat. CARDIOVASCULAR: Denies chest pain, palpitations or syncopal episodes. RESPIRATORY: Denies shortness of breath, cough, congestion or hemoptysis. GASTROINTESTINAL: Positive for abdominal pain GENITOURINARY: Denies hematuria, denies infections. MUSKULOSKELETAL: Denies pain, denies swelling. INTEGUMENTARY: Denies rash, denies eczema. NEUROLOGICAL: Denies recent memory loss, no recent seizure activity. PSYCHIATRIC: Denies anxiety, denies depression. HEMATOLOGIC/LYMPHATIC: Denies anemia, denies enlarged lymph nodes. Past Medical History Past Medical History: CVA/TIA, Hyperlipidemia, Hypertension, Osteoarthritis (OA) Additional Past Medical History / Comment(s): lt cataracts, hx of "couple" TIA's History of Any Multi-Drug Resistant Organisms: None Reported Past Surgical History: Section, Orthopedic Surgery Additional Past Surgical History / Comment(s): fx left hip sx Past Anesthesia/Blood Transfusion Reactions: No Reported Reaction Past Psychological History: Anxiety, Depression Smoking Status: Never smoker Past Alcohol Use History: Daily Additional Past Alcohol Use History / Comment(s): quit smoking approx 35 yrs ago (1983) smoked 1ppd from teens, Drinks 3 beers a night ( 2% Budweiser) Past Drug Use History: None Reported - Past Family History Mother Family Medical History: Cancer Father Family Medical History: Cancer Medications and Allergies Home Medications Medication Instructions Recorded Confirmed Type Aspirin [Adult Low Dose Aspirin EC] 81 mg PO DAILY 08/05/18 04/16/24 History Atorvastatin [Lipitor] 10 mg PO HS 08/05/18 04/16/24 History Citalopram Hydrobromide 20 mg PO DAILY 08/05/18 04/16/24 History [Citalopram HBr] Benazepril HCl [Lotensin] 20 mg PO DAILY 04/16/24 04/16/24 History Cyclobenzaprine [Flexeril] 5 - 10 mg PO HS 04/16/24 04/16/24 History Nitrofurantoin Monohyd/M-Cryst 100 mg PO Q12HR 04/16/24 04/16/24 History [Macrobid] Vit C/E/Zn/Coppr/Lutein/Zeaxan 1 cap PO BID 04/16/24 04/16/24 History [Preservision Areds 2 Softgel] Vitamin C(Unknown Dose) 1 tab PO DAILY 04/16/24 04/16/24 History Vitamin D3(Unknown Dose) 1 tab PO DAILY 04/16/24 04/16/24 History traZODone HCL [Desyrel] 50 mg PO HS 04/16/24 04/16/24 History Allergies Allergy/AdvReac Type Severity Reaction Status Date / Time No Known Allergies Allergy Verified 04/16/24 18:19 Physical Exam Vitals: Vital Signs Temp Pulse Pulse Resp BP BP BP 04/17/24 13:00 108 H 16 134/58 04/17/24 12:16 100.0 F H 110 H 16 132/59 04/17/24 07:26 98.8 F 99 17 119/72 04/17/24 02:43 97.9 F 89 15 159/77 04/16/24 21:54 98.2 F 91 16 136/66 04/16/24 21:39 98.8 F 94 17 130/75 04/16/24 18:00 04/16/24 17:39 04/16/24 17:37 98.9 F 102 H 20 143/77 04/16/24 14:50 97.3 F L 70 16 111/67 Pulse Ox 04/17/24 13:00 96 04/17/24 12:16 95 04/17/24 07:26 92 L 04/17/24 02:43 90 L 04/16/24 21:54 97 04/16/24 21:39 95 04/16/24 18:00 100 04/16/24 17:39 100 04/16/24 17:37 88 L 04/16/24 14:50 95 Intake and Output 04/16/24 04/17/24 04/17/24 22:59 06:59 14:59 Intake Total 1000 Output Total 600 600 0 Balance -600 -600 1000 Intake: IV 1000 Output: Gastric Drainage 600 600 0 Other: Voiding Method Toilet Toilet # Voids 2 Weight 49.895 kg GENERAL EXAM: Alert, pleasant 83-year-old female, on room air, fairly comfortable in no apparent distress. HEAD: Normocephalic. EYES: Normal reaction of pupils, equal size. NOSE: Clear with pink turbinates. Nasogastric tube secured in place. THROAT: No erythema or exudates. NECK: No masses, no JVD. CHEST: No chest wall deformity. LUNGS: Equal air entry with no crackles, wheeze, rhonchi or dullness. CVS: S1 and S2 normal with no audible murmur, regular rhythm. ABDOMEN: Tender to palpation. No hepatosplenomegaly, hypoactive bowel sounds, no rigidity. SPINE: No scoliosis or deformity SKIN: No rashes CENTRAL NERVOUS SYSTEM: No focal deficits, tone is normal in all 4 extremities. EXTREMITIES: There is no peripheral edema. No clubbing, no cyanosis. Periph eral pulses are intact. Results - Laboratory Findings CBC and BMP: 04/17/24 05:46 04/17/24 05:46 Abnormal lab findings: Abnormal Labs 04/16/24 04/16/24 04/17/24 15:28 15:28 05:46 WBC 11.7 H RBC 5.64 H Hgb 16.9 H Hct 52.6 H 46.4 H Neutrophils # 8.7 H Lymphocytes # 0.71 L Monocytes # 1.3 H 2.02 H Eosinophils # 0.03 L Sodium 131 L Chloride 93 L BUN 24 H BUN/Creatinine Ratio Glucose 132 H Calcium 11.0 H Phosphorus 6.2 H Total Bilirubin 1.4 H Total Protein Albumin 04/17/24 05:46 WBC RBC Hgb Hct Neutrophils # Lymphocytes # Monocytes # Eosinophils # Sodium Chloride BUN BUN/Creatinine Ratio 31.50 H Glucose 122 H Calcium Phosphorus Total Bilirubin Total Protein 5.4 L Albumin 3.6 L - Diagnostic Findings Chest x-ray: image reviewed Assessment and Plan Assessment: Abdominal pain secondary to a small bowel obstruction with dilatation of small bowel and stomach secondary to an incarcerated hernia low anterior abdominal wall and incarcerated segment of small bowel just to the left of midline. Strangulation not excluded. Plan is for surgical repair today Right paratracheal mass with deviation of the trachea from right to left, possible goiter, thymoma or mass History of daily alcohol use Former smoker History of CVA/TIA Hyperlipidemia Hypertension History of anxiety/depression Plan: The patient was seen and evaluated Imaging, labs and medications reviewed Noted paratracheal mass Will need further follow-up including CT neck/chest Cleared for surgery from the pulmonary standpoint We will continue to follow and make further recommendations based on her clinical status I have personally seen and examined the patient, performed the documentation and the assessment and plan as written. Number of minutes spent on the visit: 20.
--- NOTE | 2024-04-17 15:39 | P.OP ---
Date of Procedure: 04/17/24 Procedure(s) Performed: PREOPERATIVE DIAGNOSIS: Incarcerated incisional hernia POSTOPERATIVE DIAGNOSIS: Same PROCEDURE: Open repair of incarcerated incisional hernia SURGEON: Stacy EBL: 10 cc ANESTHESIA: General COMPLICATIONS: None OPERATIVE PROCEDURE: Patient placed on the operating table in the supine pos ition per the patient was placed under general anesthesia. Abdomen was prepped and draped sterilely. A low midline incision was made through her previous scar site. The patient's hernia sac was carefully dissected away from the fascia. The fascial opening was extended 1 cm superiorly. I was able to open the hernia sac carefully. The hernia sac itself had an ischemic appearance. Thankfully u ignacia opening the hernia sac the bowel was no longer present within the sac. The hernia sac was excised using electrocautery. Defect in the fascia now measures 2.5 x 1 cm. Through that opening I was able to run the small bowel. I was able to identify the area of small bowel that had been involved with the obstruction site as there was significant induration and edema there. It was mildly erythe matous. It was not ischemic and no longer obstructed. The fascia was then reapproximated using [id number] 0 Ethibond sutures in a vertical fashion. No mesh was used. The area was irrigated. The subcutaneous layer closed using 2-0 Vicryl sutures. Skin closed using a running 4-0 Monocryl stitch. Skin glue and sterile dressings applied. DISPOSITION: Stable to recovery room
--- NOTE | 2024-04-18 09:42 | P.PN ---
Subjective Progress Note Date: 04/18/24 Principal diagnosis: Small bowel obstruction Patient doing well today. Says her pain is improved. Mild soreness. No nausea or vomiting. 100 cc output through nasogastric tube overnight. No flatus today. Objective - Vital Signs Vital signs: Vital Signs Temp 98.6 F 04/18/24 07:08 Pulse 101 H 04/18/24 07:08 Resp 17 04/18/24 07:08 BP 121/70 04/18/24 07:08 Pulse Ox 93 L 04/18/24 07:08 FiO2 Intake & Output 04/17/24 04/18/24 04/18/24 18:59 06:59 18:59 Intake Total 700 Output Total 260 100 Balance 440 -100 Intake: IV 700 Output: Gastric Drainage 250 100 Estimated Blood Loss 10 Other: Voiding Method Toilet Toilet # Voids 4 2 - Exam Abdomen: Soft, mild distention, mild incisional tenderness, dressing clean and dry - Labs CBC & Chem 7: 04/17/24 05:46 04/17/24 05:46 Labs: Abnormal Lab Results - Last 24 Hours (Table) 04/17/24 Range/Units 05:46 Lymphocytes # 0.71 L (0.90-5.00) X 10*3/uL Monocytes # 2.02 H (0.20-1.00) X 10*3/uL Eosinophils # 0.03 L (0.04-0.35) X 10*3/uL Assessment and Plan (1) Small bowel obstruction Narrative/Plan: 83-year-old female doing well at this time. Remove nasogastric tube begin clear liquids. Increase activity. Hopefully home tomorrow or the following day. Current Visit: Yes Status: Acute Code(s): K56.609 - UNSP INTESTNL OBST, UNSP TO PARTIAL VERSUS COMPLETE OBST SNOMED Code(s): 890814148
[2024-04-18] MEDS ORDERED: RX INFO: IV CONTRAST WAS GIVEN 1 EACH MISC MISCELLANE PRN (10:11)
--- NOTE | 2024-04-18 12:45 | P.PN ---
Subjective Progress Note Date: 04/18/24 This is a pleasant 83-year-old female patient with a known history of CVA/TIA, hyperlipidemia, hypertension, anxiety/depression, daily alcohol use, non-smoker who presented to the emergency room yesterday with a 4-day history of increasing abdominal pain. Unable to eat or drink. No bowel movement x [address] scan of the abdomen and pelvis revealed a small bowel obstruction with dilatation of small bowel and stomach secondary to an incarcerated hernia low anterior abdominal wall. Incarcerated segment of small bowel just to the left of midline. Strangulation not excluded. White count 9.0. Hemoglobin 14.9. Platelets 248. Sodium 138. Potassium 3.9. Bicarb 27. BUN 19. Creatinine 0.6. Glucose 122. Urinalysis negative. Amylase 54. Lipase 182. Chest x-ray revealed a right paratracheal mass with deviation of the trachea from right to left. Nasogastric tube in place. Atelectasis of the left lung base. Consulted for abnormal chest x-ray findings. She is seen on the regular medical floor. She is currently resting fairly comfortably in bed. Awake and alert in no acute distress. Nasogastric tube remains in place. She is maintaining good O2 saturations in the 90s on room air. She denies any shortness of breath, cough or congestion. No hemoptysis. She has been initiated on Unasyn. Normal saline at 75 mL/h. Currently on the CIWA protocol. The patient is seen today April 18, 2024 in follow-up on the regular medical floor. She is currently sitting up in bed. Awake and alert in no acute distress. Maintaining good O2 saturations in the 90s on 2 L/min per nasal can nula. She did undergo an open repair of incarcerated incisional hernia yesterday. Abdominal dressing is dry and intact. She is tolerating a clear liquid diet. Objective - Vital Signs Vital signs: Vital Signs Temp 98.6 F 04/18/24 07:08 Pulse 101 H 04/18/24 07:08 Resp 17 04/18/24 07:08 BP 121/70 04/18/24 07:08 Pulse Ox 93 L 04/18/24 07:08 FiO2 Intake & Output 04/17/24 04/18/24 04/18/24 18:59 06:59 18:59 Intake Total 700 Output Total 260 100 Balance 440 -100 Intake: IV 700 Output: Gastric Drainage 250 100 Estimated Blood Loss 10 Other: Voiding Method Toilet Toilet # Voids 4 2 - Exam GENERAL EXAM: Alert, pleasant 83-year-old female, sitting up in bed, on 2 L nasal cannula, fairly comfortable in no apparent distress. HEAD: Normocephalic. EYES: Normal reaction of pupils, equal size. NOSE: Clear with pink turbinates. THROAT: No erythema or exudates. NECK: No masses, no JVD. CHEST: No chest wall deformity. LUNGS: Equal air entry with no crackles, wheeze, rhonchi or dullness. CVS: S1 and S2 normal with no audible murmur, regular rhythm. ABDOMEN: Abdominal dressing is dry and intact. No hepatosplenomegaly, normal bowel sounds, no guarding or rigidity. SPINE: No scoliosis or deformity SKIN: No rashes CENTRAL NERVOUS SYSTEM: No focal deficits, tone is normal in all 4 extremities. EXTREMITIES: There is no peripheral edema. No clubbing, no cyanosis. Peripheral pulses are intact. - Labs CBC & Chem 7: 10 05:46 04/17/24 05:46 Assessment and Plan Assessment: Abdominal pain secondary to a small bowel obstruction with dilatation of small bowel and stomach secondary to an incarcerated hernia low anterior abdominal wall and incarcerated segment of small bowel just to the left of midline. Strangulation not excluded. Status post open repair of incarcerated incisional hernia. Postoperative day #1 Right paratracheal mass with deviation of the trachea from right to left, possible goiter, thymoma or mass History of daily alcohol use Former smoker History of CVA/TIA Hyperlipidemia Hypertension History of anxiety/depression Plan: The patient was seen and evaluated Medications reviewed Postoperative day #1, doing well CT scan of the chest with contrast tomorrow To evaluate paratracheal mass Titrate down the FiO2 as tolerated Increase her activity as tolerated Tolerating a clear liquid diet We will continue to follow I have personally seen and examined the patient, performed the documentation and the assessment and plan as written. Number of minutes spent on the visit: 10.
--- NOTE | 2024-04-18 14:00 | PN ---
PROGRESS NOTE DATE OF SERVICE: 04/18/2024 This 83-year-old woman, who was admitted with small-bowel obstruction secondary to incarcerated hernia, underwent open repair of incarcerated incisional hernia. No chest pain. No palpitation. PHYSICAL EXAMINATION: VITAL SIGNS: Pulse is 101, blood pressure 121/70, respirations 17. CHEST: Clear to auscultation. CARDIOVASCULAR: S1, S2. ABDOMEN: Soft. Status post surgery. LABORATORY DATA: WBC 9.02, hemoglobin 14.9. ASSESSMENT: 1. Status post small bowel obstruction secondary to incarcerated incisional hernia and surgery. 2. Right paratracheal mass with possibly goiter. 3. History of EtOH. 4. Multiple complex medical issues. RECOMMENDATIONS: Recommend to continue current medications, symptomatic treatment. Repeat labs. Otherwise, closely follow with Surgery and Pulmonary. Further recommendations to follow. MMPACOL / IJN: [id number] /
[2024-04-18] MEDS: CYCLOBENZAPRINE 5 MG TAB PO SCH (20:34)
[2024-04-18] MEDS: traZODone HCL 50 MG TAB PO SCH (20:34)
[2024-04-19 08:16] VITALS: RESP 16
[2024-04-19] MEDS: CITALOPRAM HYDROBROMIDE 20 MG TAB PO SCH (08:31)
[2024-04-19] MEDS: ASPIRIN 81 MG PO SCH (08:31)
[2024-04-19] MEDS: lisinopriL 20 MG TAB PO SCH (08:32)
[2024-04-19 09:13] LABS: Basophils # (A) 0.04 X 10*3/uL (0.00-0.10); Basophils % (A) 0.4 %; Eosinophils # (A) 0.23 X 10*3/uL (0.04-0.35); Eosinophils % (A) 2.5 %; HGB 12.5 g/dL (12.0-15.0); Lymphocytes # (A) 1.56 X 10*3/uL (0.90-5.00); Lymphocytes % (A) 16.8 %; MCH 30.6 pg (27.0-32.0); MCHC 32.1 g/dL (32.0-37.0); MCV 95.6 FL (80.0-97.0); Mean Platelet Volume 11.8 FL (9.5-12.2); Monocytes # (A) 1.56 X 10*3/uL (0.20-1.00); Monocytes % (A) 16.8 %; NRBC Per 100 WBC 0 X 10*3/uL (0.00-0.01); Neutrophils # (A) 5.86 X 10*3/uL (1.80-7.70); Neutrophils % (A) 63.2 %; Platelet Count 218 X 10*3/uL (140-440); RBC 4.08 X 10*6/uL (4.10-5.20); RDW 13.7 % (11.5-14.5); WBC 9.28 X 10*3/uL (4.50-10.00)
--- NOTE | 2024-04-19 09:56 | P.PN ---
Subjective Progress Note Date: 04/19/24 Principal diagnosis: Small bowel obstruction Minimal abdominal pain with getting out of bed. CAT scan chest performed this morning is pending. Patient is having some hypoxia issues requiring nasal cannula oxygen. Normal white blood cell count. Objective - Vital Signs Vital signs: Vital Signs Temp 97.8 F 04/19/24 08:00 Pulse 100 04/19/24 08:00 Resp 16 04/19/24 08:00 BP 111/75 04/19/24 08:00 Pulse Ox 76 L 04/19/24 08:33 FiO2 Intake & Output 04/18/24 04/19/24 04/19/24 18:59 06:59 18:59 Output Total 100 Balance -100 Output: Gastric Drainage 100 Other: Voiding Method Toilet Toilet # Voids 2 6 - Exam Abdomen: Soft, nondistended, mild tenderness, dressing clean and dry - Labs CBC & Chem 7: 04/19/24 02:40 04/17/24 05:46 Labs: Abnormal Lab Results - Last 24 Hours (Table) 04/19/24 Range/Units 02:40 RBC 4.08 L (4.10-5.20) X 10*6/uL Monocytes # 1.56 H (0.20-1.00) X 10*3/uL Assessment and Plan (1) Small bowel obstruction Narrative/Plan: Patient doing well at this time. Advance to regular diet. Continue pulmonary workup. Hopefully discharge tomorrow. Current Visit: Yes Status: Acute Code(s): K56.609 - UNSP INTESTNL OBST, UNSP TO PARTIAL VERSUS COMPLETE OBST SNOMED Code(s): 866522397
[2024-04-19 10:20] LABS: Blood Urea Nitrogen 11.2 mg/dL (9.0-27.0); Calcium 7.9 mg/dL (8.7-10.3); Carbon Dioxide 26.2 mmol/L (21.6-31.8); Chloride 104 mmol/L (96-109); Glucose 107 mg/dL (70-110); Potassium 3.1 mmol/L (3.5-5.5); Sodium 139 mmol/L (135-145)
[2024-04-19] MEDS ORDERED: Potassium Replacement Protocol 1 EACH MISC MISCELLANE PRN ×2 (13:41→15:40)
--- NOTE | 2024-04-19 13:58 | P.PN ---
Subjective Progress Note Date: 04/19/24 This is a pleasant 83-year-old female patient with a known history of CVA/TIA, hyperlipidemia, hypertension, anxiety/depression, daily alcohol use, non-smoker who presented to the emergency room yesterday with a 4-day history of increasing abdominal pain. Unable to eat or drink. No bowel movement x [address] scan of the abdomen and pelvis revealed a small bowel obstruction with dilatation of small bowel and stomach secondary to an incarcerated hernia low anterior abdominal wall. Incarcerated segment of small bowel just to the left of midline. Strangulation not excluded. White count 9.0. Hemoglobin 14.9. Platelets 248. Sodium 138. Potassium 3.9. Bicarb 27. BUN 19. Creatinine 0.6. Glucose 122. Urinalysis negative. Amylase 54. Lipase 182. Chest x-ray revealed a right paratracheal mass with deviation of the trachea from right to left. Nasogastric tube in place. Atelectasis of the left lung base. Consulted for abnormal chest x-ray findings. She is seen on the regular medical floor. She is currently resting fairly comfortably in bed. Awake and alert in no acute distress. Nasogastric tube remains in place. She is maintaining good O2 saturations in the 90s on room air. She denies any shortness of breath, cough or congestion. No hemoptysis. She has been initiated on Unasyn. Normal saline at 75 mL/h. Currently on the CIWA protocol. The patient is seen today April 18, 2024 in follow-up on the regular medical floor. She is currently sitting up in bed. Awake and alert in no acute distress. Maintaining good O2 saturations in the 90s on 2 L/min per nasal can nula. She did undergo an open repair of incarcerated incisional hernia yesterday. Abdominal dressing is dry and intact. She is tolerating a clear liquid diet. The patient is seen today April 19, 2024 in follow-up on the regular medical floor. She is currently sitting up in a chair at the bedside. Awake and alert in no acute distress. She is maintaining good O2 saturations mid 90s on 2 L/min per nasal cannula. At one point however she had taken her oxygen off and when her nurse checked her she was only 76% O2 saturations on room air. Recovered quickly back on 2 L nasal cannula. White count 9.2. Hemoglobin 12.5. Platelets 218. Sodium 139. Potassium 3.1. Bicarb 26. BUN 11. Creatinine 0.4. D-dimer was checked and is 1.94. Doppler of the lower extremities pending. Normal saline at 50 mL/h. Antibiotics in the form of Unasyn. Objective - Vital Signs Vital signs: Vital Signs Temp 97.8 F 04/19/24 08:00 Pulse 100 04/19/24 08:00 Resp 16 04/19/24 08:00 BP 111/75 04/19/24 08:00 Pulse Ox 76 L 04/19/24 08:33 FiO2 Intake & Output 04/18/24 04/19/24 04/19/24 18:59 06:59 18:59 Output Total 100 Balance -100 Output: Gastric Drainage 100 Other: Voiding Method Toilet Toilet # Voids 2 6 - Exam GENERAL EXAM: Alert, pleasant 83-year-old female, up in a chair, on 2 L nasal cannula, comfortable in no apparent distress. HEAD: Normocephalic. EYES: Normal reaction of pupils, equal size. NOSE: Clear with pink turbinates. THROAT: No erythema or exudates. NECK: No masses, no JVD. CHEST: No chest wall deformity. LUNGS: Equal air entry with no crackles, wheeze, rhonchi or dullness. CVS: S1 and S2 normal with no audible murmur, regular rhythm. ABDOMEN: Abdominal dressing is dry and intact. No hepatosplenomegaly, normal bowel sounds, no guarding or rigidity. SPINE: No scoliosis or deformity SKIN: No rashes CENTRAL NERVOUS SYSTEM: No focal deficits, tone is normal in all 4 extremities. EXTREMITIES: There is no peripheral edema. No clubbing, no cyanosis. Peripheral pulses are intact. - Labs CBC & Chem 7: 04/19/24 02:40 04/19/24 02:40 Labs: Abnormal Lab Results - Last 24 Hours (Table) 04/19/24 04/19/24 04/19/24 Range/Units 02:40 02:40 10:41 RBC 4.08 L (4.10-5.20) X 10*6/uL Monocytes # 1.56 H (0.20-1.00) X 10*3/uL D-Dimer 1.94 H (<0.60) mg/L FEU Potassium 3.1 L (3.5-5.5) mmol/L Creatinine 0.4 L (0.6-1.5) mg/dL BUN/Creatinine Ratio 28.00 H (12.00-20.00) Ratio Calcium 7.9 L (8.7-10.3) mg/dL Assessment and Plan Assessment: Abdominal pain secondary to a small bowel obstruction with dilatation of small bowel and stomach secondary to an incarcerated hernia low anterior abdominal wall and incarcerated segment of small bowel just to the left of midline. Strangulation not excluded. Status post open repair of incarcerated incisional hernia. Postoperative day #2 Acute hypoxemic respiratory failure secondary to suspected atelectasis and low lung volumes due to elevated left hemidiaphragm Right paratracheal mass with deviation of the trachea from right to left, possible goiter, thymoma or mass History of daily alcohol use Former smoker History of CVA/TIA Hyperlipidemia Hypertension History of anxiety/depression Plan: The patient was seen and evaluated Imaging, labs and medications reviewed Did have an episode of hypoxemia on room air D-dimer was elevated Doppler of the lower extremities ordered Elevated left hemidiaphragm, sniff test ordered Remains on Unasyn Encourage increased use of the incentive spirometer Add bronchodilators We will continue to follow I have personally seen and examined the patient, performed the documentation and the assessment and plan as written. Number of minutes spent on the visit: 10.
--- NOTE | 2024-04-19 14:04 | US ---
EXAMINATION TYPE: US venous doppler duplex LE DATE OF EXAM: 04/19/2024 1:44 PM COMPARISON: NONE CLINICAL INDICATION: Female, 83 years old with history of elevated d-dimer; No hx of DVT. Patient pat es baby aspirin. Elevated D Dimer. SIDE PERFORMED: Bilateral TECHNIQUE: The lower extremity deep venous system is examined utilizing real time linear array sonog hussein with graded compression, color doppler sonography, and spectral doppler. VESSELS IMAGED: Common Femoral Vein Deep Femoral Vein Greater Saphenous Vein * Femoral Vein Popliteal Vein Small Saphenous Vein * Proximal Calf Veins (* superficial vessels) Right Leg: No evidence of DVT. Left Leg: No evidence of DVT. IMPRESSION: 1. Bilateral lower extremity ultrasound negative for deep venous thrombosis. [facility], Workstation: [facility], 04/19/2024 2:01 PM
--- NOTE | 2024-04-19 14:10 | CT ---
EXAMINATION TYPE: CT chest w con DATE OF EXAM: 04/19/2024 COMPARISON: Chest x-ray 04/17/2024 HISTORY: paratracheal mass CT DLP: 214.6 mGycm, Automated exposure control for dose reduction was used. CONTRAST: Performed injected with 90 mL of Isovue 300. TECHNIQUE: Axial images were obtained at 5 mm thick sections. Reconstructed images are reviewed on [employer] computer in the coronal plane. 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 This extends from the right lobe appears heterogenous measuring maximum 3.9 x 5.4 centimeters. This is displacing the grea t vessels superior mediastinum. Trachea is displaced posterior laterally and somewhat compressed laura cent to this mass. There is a small left pleural effusion. Minimal right pleural effusion is present. Compressive atelec tasis at the dependent lung bases bilaterally. There is a 1.1 cm x 0.7 density within the lateral left lung. Series 205 image 26. Emphysematous truong ges are evident. There is a 0.2 cm nodule posterior lateral right midlung. Series 205 image 22 No enlarged mediastinal or hilar adenopathy is evident. The ascending aorta diameter at the level o f the main pulmonary artery is 3.0 cm. The main pulmonary artery diameter at the bifurcation is 3.[address] sections are obtained through the upper abdomen. Some minimal free fluid is adjacent to th e liver. Small splenule is adjacent to the spleen. Upper abdomen otherwise appears unremarkable. IMPRESSION: 1. 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 2. 1.1 cm density lateral left lung. Follow-up is recommended. Metastasis is not excluded. 3. Small left and minimal right pleural effusions. [facility], Workstation: [facility], 04/19/2024 2:07 PM
[2024-04-19] MEDS: POTASSIUM CHLORIDE ER 20 MEQ TAB.ER PO SCH (15:02)
[2024-04-19] MEDS ORDERED: Magnesium Replacement Protocol 1 EACH MISC MISCELLANE PRN (15:40)
[2024-04-19] MEDS: IPRATROPIUM-ALBUTEROL 3 ML NEB INHALATION SCH (20:43)
[2024-04-20 02:41] VITALS: TEMP 98.6
--- NOTE | 2024-04-20 04:01 | PN ---
PROGRESS NOTE DATE OF SERVICE: 04/19/2024 SUBJECTIVE: This 83-year-old woman was admitted after surgery for small bowel obstruction, also had right paratracheal mass. CAT scan of the chest was done today which showed superior mediastinal mass, and the venous ultrasound showed negative for DVT. The patient continues to be hypoxic. REVIEW OF SYSTEMS: Noted. HOME MEDICATIONS: Reviewed. OBJECTIVE: VITAL SIGNS: Pulse is 76, blood pressure 147/60, respirations 16. CHEST: Few scattered rhonchi. ABDOMEN: Soft. NERVOUS SYSTEM: Nonfocal. LABORATORY DATA: D-dimer is 1.94. ASSESSMENT: 1. Status post small bowel obstruction secondary to incarcerated incisional hernia surgery. 2. Right paratracheal mass with possible goiter. 3. History of EtOH. 4. Hypoxia. 5. Multiple complex medical issues. RECOMMENDATIONS AND DISCUSSION: This 83-year-old woman presented with multiple complex medical issues. We will monitor the patient closely. Continue treatment. Continue incentive spirometry. Continue with bronchodilators and the patient might require home O2. Continue rest of medications. Prognosis guarded. Further recommendations to follow. See orders for further details. MMODL / IJN: [id number] /
[2024-04-20 07:41] VITALS: BP 176/83; PULSE 102
[2024-04-20 08:45] LABS: Basophils # (A) 0.03 X 10*3/uL (0.00-0.10); Basophils % (A) 0.3 %; Eosinophils # (A) 0.28 X 10*3/uL (0.04-0.35); Eosinophils % (A) 2.9 %; HCT 37.2 % (37.2-46.3); Lymphocytes # (A) 1.39 X 10*3/uL (0.90-5.00); Lymphocytes % (A) 14.2 %; MCH 30.5 pg (27.0-32.0); MCHC 32.3 g/dL (32.0-37.0); MCV 94.7 FL (80.0-97.0); Mean Platelet Volume 11.8 FL (9.5-12.2); Monocytes # (A) 1.09 X 10*3/uL (0.20-1.00); Monocytes % (A) 11.2 %; NRBC Per 100 WBC 0 X 10*3/uL (0.00-0.01); Neutrophils # (A) 6.93 X 10*3/uL (1.80-7.70); Platelet Count 250 X 10*3/uL (140-440); RBC 3.93 X 10*6/uL (4.10-5.20); RDW 13.6 % (11.5-14.5); WBC 9.76 X 10*3/uL (4.50-10.00)
[2024-04-20 08:48] LABS: Magnesium 2.1 mg/dL (1.5-2.4)
[2024-04-20 08:56] LABS: ALT 6 U/L (8-44); AST 10 U/L (13-35); Albumin/Globulin Ratio 1.88 Ratio (1.60-3.17); Alkaline Phosphatase 77 U/L (41-126); BUN/Creat Ratio 15.25 Ratio (12.00-20.00); Blood Urea Nitrogen 6.1 mg/dL (9.0-27.0); Carbon Dioxide 27.8 mmol/L (21.6-31.8); Chloride 106 mmol/L (96-109); Globulin 1.6 g/dL (1.6-3.3); Glucose 109 mg/dL (70-110); Potassium 3.5 mmol/L (3.5-5.5); Sodium 142 mmol/L (135-145); Total Bilirubin 0.5 mg/dL (0.3-1.2); Total Protein 4.6 g/dL (6.2-8.2)
--- NOTE | 2024-04-20 11:09 | P.PN ---
Subjective Progress Note Date: 04/20/24 CHIEF COMPLAINT: Small bowel obstruction HISTORY OF PRESENT ILLNESS: Postop day #3 status post open repair of incarcerated incisional hernia. Patient denies any abdominal pain. She is having bowel movements. Denies any nausea or vomiting she is tolerating diet. Afebrile. WBC 9.76 Hgb 12 platelets 250. Oxygen saturation drops with ambulating. She is followed by pulmonary service and they are arranging home O2 for home PHYSICAL EXAM: VITAL SIGNS: Reviewed. GENERAL: Well-developed in no acute distress. ABDOMEN: Soft. Nondistended. Incisional dressing clean dry and intact NEUROLOGIC: Alert and oriented. Cranial nerves II through XII grossly intact. ASSESSMENT: 1. Incarcerated incisional hernia PLAN: -Patient is stable for discharge from surgical standpoint -Continue low fiber diet Physician Medical Economics Consultant note has been reviewed by physician. Signing provider agrees with the documented findings, assessment, and plan of care. I have personally seen and examined the patient, reviewed the SHOE REPAIR SUPERVISOR /PAs history, exam and MDM and agree with the assessment and plan as written. Based on total visit time, I have performed more than 50% of the visit. As above: Patient doing well today. Minimal pain. She is having bowel function now. Still undergoing pulmonary workup. Incision clean and dry. May discharge from our point of view. Objective - Vital Signs Vital signs: Vital Signs Temp 98.6 F 04/20/24 07:09 Pulse 102 H 04/20/24 07:09 Resp 16 04/20/24 07:09 BP 176/83 04/20/24 07:09 Pulse Ox 94 L 04/20/24 10:08 FiO2 Intake & Output 04/19/24 04/20/24 04/20/24 18:59 06:59 18:59 Other: Voiding Method Toilet Toilet Toilet # Voids 4 3 - Labs CBC & Chem 7: 04/20/24 03:39 04/20/24 03:39 Labs: Abnormal Lab Results - Last 24 Hours (Table) 04/19/24 04/20/24 04/20/24 Range/Units 10:41 03:39 03:39 RBC 3.93 L (4.10-5.20) X 10*6/uL Monocytes # 1.09 H (0.20-1.00) X 10*3/uL D-Dimer 1.94 H (<0.60) mg/L FEU BUN 6.1 L (9.0-27.0) mg/dL Creatinine 0.4 L (0.6-1.5) mg/dL Calcium 8.0 L (8.7-10.3) mg/dL AST 10 L (13-35) U/L ALT 6 L (8-44) U/L Total Protein 4.6 L (6.2-8.2) g/dL Albumin 3.0 L (3.8-4.9) g/dL
--- NOTE | 2024-04-20 11:11 | P.DS ---
Providers Date of admission: 04/16/24 18:26 Expected date of discharge: 04/20/24 Attending physician: Cecil Martinez MD Consults: 04/16/24 18:26 Consult Physician Routine Consulting Provider: Willam Kumar Consult Reason/Comments: sbo Do you want consulting provider notified?: Yes 04/17/24 10:26 Consult Physician Routine Consulting Provider: Bernice Mendez Consult Reason/Comments: Right paratracheal mass with deviation of trach,SBO, Do you want consulting provider notified?: Yes Primary care physician: Cecil Maritnez MD Hospital Course: Final Diagnoses: Acute hypoxic respiratory failure secondary to suspected COPD, atelectasis as well as low lung volume secondary to elevated left hemidiaphragm with 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 Abdominal pain, small bowel obstruction, incarcerated hernia, strangulation not excluded reported per CT. status post open repair of incarcerated incisional hernia. Difficulty swallowing, right paratracheal mass with deviation of the trachea from right to left reported per chest x-ray. 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 Bibasilar atelectasis History of hysterectomy COPD, in a patient with prior nicotine dependence, smoked 1 pack/day from teen years x 35 years, quit 1983 Daily alcohol use, 3 beers of Budweiser 2%, nightly reported History of CVA, TIA Hypertension Hyperlipidemia OA Anxiety Depression Hospital course:This is a pleasant 83-year-old female with past medical history significant for 1 abdominal surgery-hysterectomy, CVA/TIA, hypertension, hyperlipidemia, osteoarthritis, cataracts, anxiety, depression, prior nicotine dependence-smoked 1 pack/day from teen years x 35 years, quit 1983, 3 beers per night and multiple other medical issues presented to the ER with complaints of abdominal pain. Reports abdominal pain started on Saturday, unable to attribute it to anything. Denies nausea, vomiting denies bowel movement or flatus since earlier this week. Denies recent illness. Denies fever or chills. Denies prior bowel obstructions. patient reports normal colonoscopy [address] Mervat Nunez. Abdominal pain continued to progress and patient presented to the ER. CT of abdomen and pelvis reported small bowel obstruction with dilatation of the small bowel and stomach secondary to incarcerated hernia low anterior abdominal wall .incarcerated segment of small bowel just to the left of the midline, strangulation not excluded . Reported difficulty swallowing, chest x-ray reporting right peritracheal mass with deviation of the trachea for right to left, NG tube coursing into the stomach, atelectatic changes left lung base afebrile. Repeat chest x-ray reporting small bilateral pleural effusions. Afebrile, WBC 11.7 on admission, now within normal limits. Hemoglobin decreased from 16.9-14.9, platelets decreased to 248, electrolytes and renal function within normal limits. Glucose 122. T. bili initially 1.4 currently 0.7. UA negative. Follow-up bowel sounds are extremely hypoactive. NG tube placed last night, accidentally dislodged and replaced during the night with 600 mL of bilious drainage. Evaluated by general surgery, status post open repair of incarcerated incisional hernia. Tolerated procedure well. Tolerated diet advancement with no nausea, vomiting or diarrhea. Positive bowel movement this morning. Ambulating in hallways, tolerating exertion well. Denies chest pain, palpitations or shortness of breath. Desatted to 76% on room air after ambulation, maintaining O2 sats of 94% on 2 L nasal cannula. Venous Doppler negative for DVT. 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 Sniff test pending. Cleared by general surgery for discharge. Cleared by pulmonary for discharge with no further antibiotic tx. recommended. Lungs unlabored, equal air entry, clear. Patient will be discharged home today in a stable condition with guarded prognosis. The impression and plan of care has been dictated as directed. : I performed a history and examination of this patient, discussed the same with the dictator. I agree with the dictator's note ,documented as a scribe. Any additional findings or plans will be noted. Patient Condition at Discharge: Stable Plan - Discharge Summary Discharge Rx Participant: Yes New Discharge Prescriptions: New Ipratropium-Albuterol Nebulize [Duoneb 0.5 mg-3 mg/3 ml Soln] 3 ml INHALATION QID PRN 30 Days #120 each PRN Reason: Shortness Of Breath Continue Atorvastatin [Lipitor] 10 mg PO HS Citalopram Hydrobromide [Citalopram HBr] 20 mg PO DAILY Aspirin [Adult Low Dose Aspirin EC] 81 mg PO DAILY Vitamin D3(Unknown Dose) 1 tab PO DAILY traZODone HCL [Desyrel] 50 mg PO HS Vit C/E/Zn/Coppr/Lutein/Zeaxan [Preservision Areds 2 Softgel] 1 cap PO BID Cyclobenzaprine [Flexeril] 5 - 10 mg PO HS Vitamin C(Unknown Dose) 1 tab PO DAILY Benazepril HCl [Lotensin] 20 mg PO DAILY Discontinued Nitrofurantoin Monohyd/M-Cryst [Macrobid] 100 mg PO Q12HR Discharge Medication List Aspirin [Adult Low Dose Aspirin EC] 81 mg PO DAILY 08/05/18 [History] Atorvastatin [Lipitor] 10 mg PO HS 08/05/18 [History] Citalopram Hydrobromide [Citalopram HBr] 20 mg PO DAILY 08/05/18 [History] Benazepril HCl [Lotensin] 20 mg PO DAILY 04/16/24 [History] Cyclobenzaprine [Flexeril] 5 - 10 mg PO HS 04/16/24 [History] Vit C/E/Zn/Coppr/Lutein/Zeaxan [Preservision Areds 2 Softgel] 1 cap PO BID 04/16/24 [History] Vitamin C(Unknown Dose) 1 tab PO DAILY 04/16/24 [History] Vitamin D3(Unknown Dose) 1 tab PO DAILY 04/16/24 [History] traZODone HCL [Desyrel] 50 mg PO HS 04/16/24 [History] Acetaminophen Tab [Tylenol] 1,000 mg PO Q6HR PRN #30 tablet 04/20/24 [Rx] Ipratropium-Albuterol Nebulize [Duoneb 0.5 mg-3 mg/3 ml Soln] 3 ml INHALATION QID PRN 30 Days #120 each 04/20/24 [Rx] Follow up Appointment(s)/Referral(s): Bernice Mendez MD [STAFF PHYSICIAN] - 1 Week Cecil Martinez MD [Primary Care Provider] - 1 Week Activity/Diet/Wound Care/Special Instructions: Desatted to 76% on room air after ambulation, maintaining O2 sats of 94% on 2 L nasal cannula. 2 L nasal cannula O2 at discharge as recommended per pulmonary.
--- NOTE | 2024-04-20 11:48 | FL ---
EXAMINATION TYPE: FL sniff test without CXR DATE OF EXAM: 04/20/2024 COMPARISON: NONE HISTORY: Elevated left diaphragm TECHNIQUE: Fluoroscopy. FINDINGS: Elevation left hemidiaphragm. Normal incursion and excursion of the hemidiaphragms at sniff ing. IMPRESSION: No evidence for diaphragmatic paralysis. [facility], Workstation: [facility], 04/20/2024 11:46 AM
--- NOTE | 2024-04-20 13:55 | P.PN ---
Subjective Progress Note Date: 04/20/24 This is a pleasant 83-year-old female patient with a known history of CVA/TIA, hyperlipidemia, hypertension, anxiety/depression, daily alcohol use, non-smoker who presented to the emergency room yesterday with a 4-day history of increasing abdominal pain. Unable to eat or drink. No bowel movement x [address] scan of the abdomen and pelvis revealed a small bowel obstruction with dilatation of small bowel and stomach secondary to an incarcerated hernia low anterior abdominal wall. Incarcerated segment of small bowel just to the left of midline. Strangulation not excluded. White count 9.0. Hemoglobin 14.9. Platelets 248. Sodium 138. Potassium 3.9. Bicarb 27. BUN 19. Creatinine 0.6. Glucose 122. Urinalysis negative. Amylase 54. Lipase 182. Chest x-ray revealed a right paratracheal mass with deviation of the trachea from right to left. Nasogastric tube in place. Atelectasis of the left lung base. Consulted for abnormal chest x-ray findings. She is seen on the regular medical floor. She is currently resting fairly comfortably in bed. Awake and alert in no acute distress. Nasogastric tube remains in place. She is maintaining good O2 saturations in the 90s on room air. She denies any shortness of breath, cough or congestion. No hemoptysis. She has been initiated on Unasyn. Normal saline at 75 mL/h. Currently on the CIWA protocol. The patient is seen today April 18, 2024 in follow-up on the regular medical floor. She is currently sitting up in bed. Awake and alert in no acute distress. Maintaining good O2 saturations in the 90s on 2 L/min per nasal can nula. She did undergo an open repair of incarcerated incisional hernia yesterday. Abdominal dressing is dry and intact. She is tolerating a clear liquid diet. The patient is seen today April 19, 2024 in follow-up on the regular medical floor. She is currently sitting up in a chair at the bedside. Awake and alert in no acute distress. She is maintaining good O2 saturations mid 90s on 2 L/min per nasal cannula. At one point however she had taken her oxygen off and when her nurse checked her she was only 76% O2 saturations on room air. Recovered quickly back on 2 L nasal cannula. White count 9.2. Hemoglobin 12.5. Platelets 218. Sodium 139. Potassium 3.1. Bicarb 26. BUN 11. Creatinine 0.4. D-dimer was checked and is 1.94. Doppler of the lower extremities pending. Normal saline at 50 mL/h. Antibiotics in the form of Unasyn. The patient is seen today April 20, 2024 in follow-up on the regular medical floor. She is up ambulating in her room. Awake and alert in no acute distress. She is anxious to go home. She is maintaining O2 saturations in the 90s on 2 L/min per nasal cannula. She will require home oxygen. She is afebrile. Hemodynamically stable. Sniff test revealed no evidence of diaphragmatic paralysis. CT scan of the chest revealed a superior mediastinal mass extending from the inferior right lobe thyroid displacing vessels and trachea. There is a 1.1 cm density in the left lateral lung. To be followed in the outpatient setting. White count 9.7. Hemoglobin 12.0. Platelets 250. Sodium 142. Potassium 3.5. Bicarb 28. BUN 6. Creatinine 0.4. AST 10. ALT 6. Procalcitonin was negative at 0.23. Objective - Vital Signs Vital signs: Vital Signs Temp 98.6 F 04/20/24 07:09 Pulse 102 H 04/20/24 07:09 Resp 16 04/20/24 07:09 BP 176/83 04/20/24 07:09 Pulse Ox 94 L 04/20/24 10:08 FiO2 Intake & Output 04/19/24 04/20/24 04/20/24 18:59 06:59 18:59 Other: Voiding Method Toilet Toilet Toilet # Voids 4 3 - Exam GENERAL EXAM: Alert, pleasant 83-year-old female, ambulating in her room, on 2 L nasal cannula, in no apparent distress. HEAD: Normocephalic. EYES: Normal reaction of pupils, equal size. NOSE: Clear with pink turbinates. THROAT: No erythema or exudates. NECK: No masses, no JVD. CHEST: No chest wall deformity. LUNGS: Equal air entry with no crackles, wheeze, rhonchi or dullness. CVS: S1 and S2 normal with no audible murmur, regular rhythm. ABDOMEN: Abdominal dressing is dry and intact. No hepatosplenomegaly, normal bowel sounds, no guarding or rigidity. SPINE: No scoliosis or deformity SKIN: No rashes CENTRAL NERVOUS SYSTEM: No focal deficits, tone is normal in all 4 extremities. EXTREMITIES: There is no peripheral edema. No clubbing, no cyanosis. Peripheral pulses are intact. - Labs CBC & Chem 7: 04/20/24 03:39 04/20/24 03:39 Labs: Abnormal Lab Results - Last 24 Hours (Table) 04/20/24 04/20/24 Range/Units 03:39 03:39 RBC 3.93 L (4.10-5.20) X 10*6/uL Monocytes # 1.09 H (0.20-1.00) X 10*3/uL BUN 6.1 L (9.0-27.0) mg/dL Creatinine 0.4 L (0.6-1.5) mg/dL Calcium 8.0 L (8.7-10.3) mg/dL AST 10 L (13-35) U/L ALT 6 L (8-44) U/L Total Protein 4.6 L (6.2-8.2) g/dL Albumin 3.0 L (3.8-4.9) g/dL Assessment and Plan Assessment: Abdominal pain secondary to a small bowel obstruction with dilatation of small bowel and stomach secondary to an incarcerated hernia low anterior abdominal wall and incarcerated segment of small bowel just to the left of midline. Strangulation not excluded. Status post open repair of incarcerated incisional hernia. 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 Mendez in our office post discharge I have personally seen and examined the patient, performed the documentation and the assessment and plan as written. Number of minutes spent on the visit: 10.
== END 2024-04-20 14:28 | disposition home or self-care (01) | DRG 353 ==
LOC: EC 14:48 → 4SSUR 18:26
PROVIDERS: ADMIT Family Medicine; ATTEND Family Medicine
PROC: 0WQF0ZZ Repair Abdominal Wall, Open Approach (ICD-10-PCS; principal; 2024-04-17 07:30)
DX: K43.0 Incisional hernia with obstruction, without gangrene (principal); J96.01 Acute respiratory failure with hypoxia; D69.6 Thrombocytopenia, unspecified; J39.8 Other specified diseases of upper respiratory tract; J44.9 Chronic obstructive pulmonary disease, unspecified; I10 Essential (primary) hypertension; F32.A Depression, unspecified; E78.5 Hyperlipidemia, unspecified; F41.9 Anxiety disorder, unspecified; R13.10 Dysphagia, unspecified; M19.90 Unspecified osteoarthritis, unspecified site; Z87.891 Personal history of nicotine dependence; Z79.82 Long term (current) use of aspirin; Z79.899 Other long term (current) drug therapy; Z86.73 Personal history of transient ischemic attack (TIA), and cerebral infarction without residual deficits
CPT/HCPCS: 36415; 64488; 71045; 71260; 74177; 76000; 80048; 80053; 81003; 82150; 83690; 83735; 84100; 84145; 85025; 85379; 88302; 93970; 96361; 96365; 96366; 96375; 99285